=== PATIENT | male | born 1955 | race Caucasian/White ===

== ENCOUNTER 2021-07-10 12:16 | Emergency (ER) | payer MEDICARE, SELFPAY ==
[2021-07-10] VITALS (11 sets, daily range): BP systolic 124–196; BP diastolic 85–137; PULSE 83–128; RESP 17–30; TEMP 36.9; O2SAT 89–100
--- NOTE | ~2021-07-10 | XR_ITS ---
EXAMINATION: XR chest 2V 07/10/2021 15:28 INDICATION: Chest pain and dyspnea PROCEDURE: 2 view chest COMPARISON: No prior studies for comparison. FINDINGS: The lungs are clear. The cardiomediastinal silhouette is within normal limits. There are no pleural effusions. There is no pneumothorax suspected. IMPRESSION: 1: NO ACUTE CARDIOPULMONARY DISEASE. Reviewed, dictated and finalized at location A. ER INSTALLER
--- NOTE | 2021-07-10 13:20 | ED.SOB ---
HPI - SOB/Dyspnea General Chief Complaint: Shortness of Breath/Dyspnea Stated Complaint: SOB Time Seen by Provider: 07/10/21 13:20 Source: patient Mode of arrival: ambulatory Limitations: no limitations History of Present Illness HPI Narrative: 66-year-old man comes in today complaining of several weeks of increasing shortness of breath and chest pressure that has gotten worse the last 3 days. He has chest pressure that is 5/10 and worse with exertion. He has also developed a cough productive of brown sputum. He was seen at an outpatient clinic and given antibiotics for his symptoms. He complains of months of cough, wheezing and shortness of breath that worse when he lays down. He denies any fever, chills, nausea vomiting, diarrhea, sick exposures, abdominal pain, ankle swelling and prior similar symptoms. He has been using Primatene mist and Primatene tabs for his symptoms and they are having little effect. MD elicited complaint: shortness of breath and cough Onset (ago): week(s) Timing: constant and progressively worsening Severity: moderate Exacerbating factors: lying flat, exertion and humidity Relieving factors: rest Associated symptoms: chest pain (Only with cough), cough, wheezing and orthopnea Treatment prior to arrival: other (Primatine mist and tabs) Related Data Home oxygen amount: none Home Medications Medication Instructions Recorded Confirmed diazepam 5 mg PO DAILY 07/10/21 07/10/21 Allergies Allergy/AdvReac Type Severity Reaction Status Date / Time No Known Allergies Allergy Verified 07/10/21 13:08 Review of Systems Review of Systems: All systems reviewed & are unremarkable except as noted in HPI and below Constitutional: Constitutional: Denies chills, Denies fever(s) and Denies weakness Eyes: Eyes: Denies change in vision and Denies photophobia ENT: Denies nasal congestion and Denies sore throat Cardiovascular: Cardiovascular: Reports as per HPI, Denies chest pain and Denies radiating jaw, neck or arm pain Respiratory: Respiratory: Reports cough, Reports dyspnea and Reports wheezing Gastrointestinal: Gastrointestinal: Denies abdominal pain, Denies diarrhea, Denies nausea and Denies vomiting Genitourinary: Genitourinary: Denies hematuria, Denies dysuria and Denies urinary frequency Musculoskeletal: Musculoskeletal: Denies arthralgias and Denies joint swelling Integumentary/Breasts: Skin/Breast: Denies pruritus, Denies erythema and Denies rash Neurologic: Denies vertigo, Denies dizziness, Denies syncope, Denies headache(s), Denies focal weakness and Denies numbness Hematologic/Lymphatic: Hematologic/Lymphatic: Denies easy bleeding and Denies easy bruising Allergic/Immunologic: Allergic/Immunologic: Denies lip swelling, Denies throat swelling and Denies tongue swelling [facility] Social History Social History (Updated 07/10/21 @ 14:20 by Wayne Matthews MD) Smoking status: Former smoker Alcohol intake: current Alcohol use details: 3 drinks per day until recently Substance use: never Exam Const: General: alert and ill appearing (Mildly and) acutely Orientation/consciousness: patient oriented x3 Other: Mild acute distress. HENMT: Head: normal to inspection Ears: external ears normal, TM's normal bilaterally and EAC's normal General nose exam: Normal nares present Face and sinus: normal facial exam Mouth: Yes moist mucous membranes Throat: posterior oropharynx normal Eyes: Conjunctivae: conjunctivae normal Pupils: Equal, round and reactive pupils present EOM: EOMs intact bilaterally Resp: Effort & Inspection: normal respiratory effort Auscultation: no rales, no rhonchi and wheezes (Mildly prolonged expiratory phase.) expiratory wheezes and throughout Cardio: Rate: regular rate Rhythm: regular rhythm Heart sounds: no murmurs GI: GI Palp: Yes Soft to palpation and No Tenderness to palpation present (GI) Skin: General skin exam: normal color, no jaundice and no pallo
--- NOTE | 2021-07-10 13:29 | ECG_ITS ---
Measurements Intervals [place] Rate: 96 P: 61 HI: 137 QRS: 14 QRSD: 117 T: 34 QT: 375 QTc: 475 Interpretive Statements SINUS RHYTHM POSSIBLE LEFT ATRIAL ENLARGEMENT INCOMPLETE RIGHT BUNDLE BRANCH BLOCK BASELINE ARTIFACT- I, II, III, AVR, AVL, AVF, V1-V3 BORDERLINE ECG Electronically Signed On 07-10-2021 13:48:08 RN [place] by Abad Mancilla D.O.
[2021-07-10 14:01] LABS: Base Excess ABG -0.2 mmol/L (0-2); HCO3 ABG 22.5 mmol/L (23-29); Oxygen Content ABG 15.3 %vol (16.0-22.0); Oxyhemoglobin 90.6 % (94-100); PCO2 ABG 30.6 mmHg (35-45); PO2 ABG 61.4 mmHg (75-85); pH ABG 7.48 (7.35-7.45)
[2021-07-10 14:12] LABS: Hematocrit 34.7 % (37.0-46.0); Hemoglobin 11.7 g/dL (12.4-15.3); Mean Corpuscular HGB Conc 33.7 g/dL (32.0-36.0); Mean Corpuscular Hemoglobin 31.7 pg (27.0-31.0); Mean Platelet Volume 11.3 fl (8.7-11.0); Platelet Count Result 326 K/mm3 (150-420); Red Blood Count 3.69 M/mm3 (4.70-6.10); Red Cell Distribution Width 13.2 % (11.6-14.4); White Blood Count 13.8 K/mm3 (4.8-10.8)
[2021-07-10 14:16] LABS: Device ROOM AIR; Modified Allen's Test Pass; Site Drawn RIGHT RADIAL
[2021-07-10 14:23] LABS: D Dimer 0.43 mg/L (0.19-0.50); Partial Thromboplastin Time 25.1 SEC (23.90-30.70); Prothrombin Time 10.7 Seconds (9.50-12.10)
[2021-07-10 14:28] LABS: Alanine Aminotransferase 48 U/L (16-63); Albumin Level 3.5 g/dL (3.4-5.0); Alkaline Phosphatase 64 U/L (46-116); Anion Gap 11 mmol/L (8-16); Aspartate Amino Transferase 43 U/L (15-37); Bilirubin,Total 0.5 mg/dL (0.00-1.00); Blood Urea Nitrogen 18 mg/dL (7-18); Calcium 9.2 mg/dL (8.5-10.1); Carbon Dioxide 28 mmol/L (21-32); Chloride 105 mmol/L (98-108); Estimated CRCL calculation 46 ml/min; Estimated Glomerular Filt Rate 56; Glucose 115 mg/dL (70-99); NT Pro B Type Natriuretic Pept 2118 pg/mL (0-125); Osmolality Calculated 300 mOsm/kg (285-295); Potassium 3.6 mmol/L (3.5-5.1); Sodium 144 mmol/L (136-145); Total Protein 7.3 g/dL (6.4-8.2)
[2021-07-10 14:30] LABS: Troponin I 651.1 ng/L (0.00-60.4)
[2021-07-10 14:42] LABS: SARS-CoV-2 RNA PCR Negative (Negative)
[2021-07-10] MEDS: METOPROLOL TARTRATE 25 MG TABLET PO ×2 (14:46→22:29)
[2021-07-10] MEDS: ASPIRIN 81 MG CHEWABLE TABLET 324 MG PO (14:46)
[2021-07-10 14:54] LABS: Band Neutrophils Percent 0 % (0-6); Basophils Absolute Manual 0.13 K/mm3 (0-0.1); Basophils Percent Manual 1 % (0-1); Eosinophils Absolute Manual 3.17 K/mm3 (0.02-0.5); Eosinophils Percent Manual 23 % (1-6); Lymphocytes Absolute Manual 1.51 K/mm3 (1.1-4.5); Lymphocytes Percent Manual 11 % (18-44); Monocytes Absolute Manual 0.82 K/mm3 (0.1-0.90); Monocytes Percent Manual 6 % (3-9); Neutrophils Absolute Manual 8.14 K/mm3 (1.3-6.7); Neutrophils Percent Manual 59 % (46-73); Platelet Estimate Adequate (Adequate); Total Cells Counted 100
[2021-07-10] MEDS: ACETAMINOPHEN 500 MG TABLET 1000 MG PO (15:42)
[2021-07-10] MEDS: NITROGLYCERIN SL 0.4 MG TABLET SUBLINGUAL (15:43)
--- NOTE | 2021-07-10 15:44 | PC.NURSE ---
Dr. Whyte called at [phone] with no answer
--- NOTE | 2021-07-10 15:45 | PC.NURSE ---
Elizabeth Sauer called at [phone] and voicemail left at this time
[2021-07-10 15:58] LABS: Add Urine Microscopic? NO; Appearance Urine Clear (Clear); Bilirubin Urine Negative (Negative); Blood Urine Negative (Negative); Color Urine Light Yellow (Yellow); Glucose Urine UA Negative (Negative); Ketones Urine Negative (Negative); Leukocyte Esterase Ur Negative LEU/UL (Negative); Nitrate Urine Negative (Negative); Protein Urine Negative (Negative); Urobilinogen Urine 0.2 mg/dL (0.2-1.0); pH Urine 5.5 (5.0-8.0)
--- NOTE | 2021-07-10 16:31 | PC.NURSE ---
Patient sitting up on side of bed and resting comfortably at this time.
--- NOTE | 2021-07-10 18:17 | PC.NURSE ---
Patient assisted to bathroom by RN. denies any CP at this time.
[2021-07-10 18:32] LABS: Troponin I 855.1 ng/L (0.00-60.4)
[2021-07-10] MEDS: ENOXAPARIN 60 MG/0.6 ML SYRINGE SUB-Q (19:00)
[2021-07-10] MEDS: FUROSEMIDE INJ 40 MG/4 ML VIAL IV PUSH (19:40)
[2021-07-10 21:33] LABS: Troponin I 753.9 ng/L (0.00-60.4)
[2021-07-11] VITALS (16 sets, daily range): BP systolic 144–168; BP diastolic 48–97; PULSE 72–100; RESP 16–20; TEMP 36.6–36.9; O2SAT 94–98
--- NOTE | 2021-07-11 00:09 | PC.NURSE ---
Patient arrived from ER t0 room 206. Oriented to room and enviroment.
--- NOTE | 2021-07-11 00:28 | PC.NURSE ---
Call placed to [facility] in [place] for possible pt transfer. Pt stated he was trying to get back to [place] and has had Drs in this location in past and was a pt at [facility]. Call to transfer line made and told No Beds available.
--- NOTE | 2021-07-11 00:47 | PC.NURSE ---
Patient c/o SOB. SPO2 95% on room air. Placed on O2 at 2 liters nasal cannula for comfort.
--- NOTE | 2021-07-11 01:48 | PC.NURSE ---
Call placed back to [facility], report given on pt status and possible need for a cardiac cath and pts dx of NSTEMI. Pt at this time will be placed on their wait list as they have no ICU/cardiac beds available. Will call back when available. Info and updates given to 2nd floor nurse Zac Lau
--- NOTE | 2021-07-11 02:29 | PC.NURSE ---
[facility] called to inform us that they are at full bed capacity and that the pt is still on the waiting list.
--- NOTE | 2021-07-11 04:54 | PC.NURSE ---
[facility] called with update on wait list. No beds at this time.
[2021-07-11 05:34] LABS: Hematocrit 32.7 % (37.0-46.0); Mean Corpuscular HGB Conc 33.6 g/dL (32.0-36.0); Mean Corpuscular Hemoglobin 31.5 pg (27.0-31.0); Mean Corpuscular Volume 93.7 fL (78.0-102.0); Mean Platelet Volume 11.2 fl (8.7-11.0); Platelet Count Result 296 K/mm3 (150-420); Red Blood Count 3.49 M/mm3 (4.70-6.10); Red Cell Distribution Width 13.2 % (11.6-14.4); White Blood Count 13.6 K/mm3 (4.8-10.8)
[2021-07-11 05:55] LABS: Band Neutrophils Percent 0 % (0-6); Eosinophils Absolute Manual 1.63 K/mm3 (0.02-0.5); Eosinophils Percent Manual 12 % (1-6); Lymphocytes Absolute Manual 2.99 K/mm3 (1.1-4.5); Lymphocytes Percent Manual 22 % (18-44); Monocytes Absolute Manual 0.95 K/mm3 (0.1-0.90); Monocytes Percent Manual 7 % (3-9); Neutrophils Absolute Manual 8.02 K/mm3 (1.3-6.7); Neutrophils Percent Manual 59 % (46-73); Total Cells Counted 100
[2021-07-11 05:56] LABS: Platelet Estimate Adequate (Adequate)
[2021-07-11 06:03] LABS: Alanine Aminotransferase 50 U/L (16-63); Albumin Level 3.3 g/dL (3.4-5.0); Alkaline Phosphatase 58 U/L (46-116); Anion Gap 11 mmol/L (8-16); Aspartate Amino Transferase 42 U/L (15-37); Bilirubin,Total 0.5 mg/dL (0.00-1.00); Blood Urea Nitrogen 20 mg/dL (7-18); Carbon Dioxide 28 mmol/L (21-32); Chloride 104 mmol/L (98-108); Estimated CRCL calculation 39 ml/min; Estimated Glomerular Filt Rate 47; Glucose 94 mg/dL (70-99); Osmolality Calculated 298 mOsm/kg (285-295); Potassium 3.1 mmol/L (3.5-5.1); Sodium 143 mmol/L (136-145); Total Protein 6.8 g/dL (6.4-8.2)
[2021-07-11 06:05] LABS: Troponin I 485.4 ng/L (0.00-60.4)
--- NOTE | 2021-07-11 06:08 | PC.NURSE ---
Doctor notified of trop level.
[2021-07-11] MEDS: ENOXAPARIN 60 MG/0.6 ML SYRINGE SUB-Q ×2 (06:28→21:39)
[2021-07-11] MEDS: METOPROLOL TARTRATE 25 MG TABLET PO ×2 (09:21→21:38)
--- NOTE | 2021-07-11 10:16 | PC.NURSE ---
ate 100% of breakfast this am. lungs have crackes. cough up sm thick brown mucous. denies chest pain. c/o he does does get winded with exertion. up ad dorina in room
[2021-07-11] MEDS: ALBUTEROL SULFATE (*SP) INHALER 2 PUFF INHALATION ×3 (13:33→21:37)
[2021-07-11] MEDS: methylPREDNISolone SOD SUCC 125 MG VIAL IV PUSH ×2 (13:33→21:38)
--- NOTE | 2021-07-11 16:16 | PC.NURSE ---
up ad dorina in room. sr on tele with rates 80-90's. denies any cp. he claims since inhaler use to fix wheezes in lungs he feels better. denies any sob. [facility] claims no beds at this time.
--- NOTE | 2021-07-11 16:25 | PC.NURSE ---
1230 patient c/o to deny cp. still coughs up house mucous. ate 100% of lunch. up ad dorina in room to br. gait steady. tele is sr with rates 80-90;s.
--- NOTE | 2021-07-11 18:03 | PC.NURSE ---
[facility] called and informed that there is still no beds available there.
[2021-07-11 18:36] LABS: Troponin I 253.7 ng/L (0.00-60.4)
--- NOTE | 2021-07-11 20:00 | PC.NURSE ---
Patient is an ER hold, waiting for placement in a hospital with higher acuity care. Patient is on telemetry, and was typically showing atrial fibrillation. He stated that he has improved a great deal since having his treatment (Duonebs and methylprednisolone). Patient's GI, , HEENT, Integumentary, Neurological and Reproductive systems were within normal limits. Patient was diagnosed with a non-stemi in the ER. His troponin levels began at 651.1, slowly dropping down to 253. Patient also has COPD, and evidences bilateral wheezing on expiration. Patient is independent, and is able to use the urinal independently. Patient stated that he does not have any pain at this time.
[2021-07-12] VITALS (7 sets, daily range): BP systolic 146–164; BP diastolic 65–80; PULSE 73–88; RESP 18–22; TEMP 36.7–37.3; O2SAT 93–96
[2021-07-12] MEDS: methylPREDNISolone SOD SUCC 125 MG VIAL IV PUSH (06:42)
[2021-07-12] MEDS: ENOXAPARIN 60 MG/0.6 ML SYRINGE SUB-Q (06:42)
--- NOTE | 2021-07-12 08:05 | ECHO_ITS ---
Patient Info Name: Gabriel Varma Age: 66 years : 1955 Gender: Male Ht: 68 in Wt: 143 lbs BSA: 1.76 m2 HR: 86 bpm BP: 164 / 80 mmHg Technical Quality: Good Exam Date: 07/12/2021 8:56 AM Exam Location: [facility] Patient Status: Emergency Admit Date: 07/10/2021 Staff Ordering Physician: Remi Meza MD Relationship Specialist: Brittany Heredia Attending Provider: Wayne Matthews MD Referring Physician: Derrick ABARCA; Exam Type: CA echo doppler color flow Study Info Indications I21.4 - Non-ST elevation (NSTEMI) myocardial infarction Complete two-dimensional, color flow and Doppler transthoracic echocardiogram is performed. Strain analysis performed. Summary 1. Complete two-dimensional, color flow and Doppler transthoracic echocardiogram is performed. 2. Left ventricular chamber dimension is normal. 3. Left ventricular systolic function is normal, estimated at 60-65%. 4. The left ventricular diastolic function is grade I diastolic dysfunction. 5. E/e' 11 is mildly elevated. 6. Global longitudinal strain is abnormal at -16.2%. 7. There is mild tricuspid valve regurgitation. 8. No pulmonary hypertension, estimated pulmonary arterial systolic pressure is 33 mmHg. Left Ventricle E/e' 11 is mildly elevated. Global longitudinal strain is abnormal at -16.2%. Left ventricular chamber dimension is normal. Left ventricular systolic function is normal, estimated at 60-65%. The left ventricular diastolic function is grade I diastolic dysfunction. Right Ventricle Right ventricular systolic function is normal and with normal TAPSE 2.5 cm.. Right ventricular chamber dimension is normal. Left Atria Left atrial chamber dimension is normal. Right Atria Right atrial chamber dimension is normal. Aortic Valve The aortic valve is not well visualized. Cannot determine number of aortic valve leaflets. There is no aortic valve stenosis. There is no aortic valve regurgitation. Pulmonic Valve There is no pulmonic regurgitation. Mitral Valve There is no mitral valve stenosis. There is no mitral valve regurgitation. Tricuspid Valve There is mild tricuspid valve regurgitation. No pulmonary hypertension, estimated pulmonary arterial systolic pressure is 33 mmHg. Pericardium/Pleural There is no pericardial effusion. Inferior Vena Cava Normal inferior vena cava with >50% collapse upon inspiration consistent with normal right atrial pressure, 5 mmHg. Aorta The aortic root size at the sinus of Valsalva is normal. Left Ventricular Outflow Tract Name Value Normal LVOT 2D LVOT Diameter 2.0 cm LVOT Doppler LVOT Peak Velocity 96 cm/s LVOT Peak Gradient 4 mmHg LVOT Mean Gradient 2 mmHg LVOT VTI 19 cm LVOT VTI/AV VTI Ratio 0.9 LVOT Stroke Volume 61 ml Mitral Valve Name Value Normal
[2021-07-12 08:43] LABS: Basophils Absolute Auto 0.02 K/mm3 (0.00-0.10); Basophils Percent Auto 0.2 % (0.0-1.0); Hemoglobin 11.5 g/dL (12.4-15.3); Immature Granulocyte Absolute 0.05 K/mm3 (0.00-0.00); Immature Granulocyte Percent A 0.4 % (0.0-0.0); Lymphocytes Absolute Auto 0.79 K/mm3 (1.10-4.50); Lymphocytes Percent Auto 6.8 % (18.0-42.0); Mean Corpuscular HGB Conc 34.8 g/dL (32.0-36.0); Mean Corpuscular Hemoglobin 31.2 pg (27.0-31.0); Mean Corpuscular Volume 89.4 fL (78.0-102.0); Mean Platelet Volume 11.8 fl (8.7-11.0); Monocytes Percent Auto 4.3 % (2.0-11.0); Neutrophils Absolute Auto 10.3 K/mm3 (1.7-7.2); Neutrophils Percent Auto 88.3 % (50.0-70.0); Platelet Count Result 327 K/mm3 (150-420); Red Blood Count 3.69 M/mm3 (4.70-6.10); Red Cell Distribution Width 12.6 % (11.6-14.4); White Blood Count 11.7 K/mm3 (4.8-10.8)
[2021-07-12 09:04] LABS: Anion Gap 10 mmol/L (8-16); Blood Urea Nitrogen 29 mg/dL (7-18); Calcium 8.9 mg/dL (8.5-10.1); Carbon Dioxide 28 mmol/L (21-32); Chloride 102 mmol/L (98-108); Estimated CRCL calculation 40 ml/min; Estimated Glomerular Filt Rate 48; Glucose 127 mg/dL (70-99); Osmolality Calculated 297 mOsm/kg (285-295); Potassium 3.3 mmol/L (3.5-5.1); Sodium 140 mmol/L (136-145)
--- NOTE | 2021-07-12 09:05 | PC.NURSE ---
Spoke to [facility] Hide Stretcher at [facility] and they do not have any beds. She stated that in their capacity meeting for [facility] that [facility] in [place] might have a bed. Called and left a message for the warehouse team member. Ana Rosa, 2nd floor RN notified
[2021-07-12 09:07] LABS: Troponin I 116.8 ng/L (0.00-60.4)
--- NOTE | 2021-07-12 09:40 | PC.NURSE ---
Spoke to [facility] transfer line and intake information given for possible transfer. Waiting change control specialist back.
[2021-07-12] MEDS: ASPIRIN 81 MG CHEWABLE TABLET PO (10:08)
[2021-07-12] MEDS: ALBUTEROL SULFATE (*SP) INHALER 2 PUFF INHALATION (10:09)
[2021-07-12] MEDS: UMECLIDINIUM BROMIDE 62.5 MCG ELLIPTA 1 PUFF INHALATION (10:09)
[2021-07-12] MEDS: METOPROLOL TARTRATE 25 MG TABLET PO (10:09)
--- NOTE | 2021-07-12 10:42 | PC.NURSE ---
up ad dorina in room. gait steady. feed self breakfast. denies any sob or cp. lungs cta this am. sr on tele
--- NOTE | 2021-07-12 12:07 | PC.NURSE ---
[facility] with [facility] called and pt has been accepted by cardiology. Dr. Meza speaking with hospitalist at this time.
--- NOTE | 2021-07-12 12:21 | PC.NURSE ---
Jaz on 2nd floor notified that pt has been accepted at [facility]. Phone number to call report given to Jaz.
--- NOTE | 2021-07-12 13:38 | PC.NURSE ---
report called to pam reid, and ambulance called. pt cont to deny sob.
--- NOTE | 2021-07-12 14:02 | PC.NURSE ---
1355 ambulance here and report given and care turned over to them.
--- NOTE | 2021-07-12 14:29 | WPDPN ---
Progress Note: A&P Assessment and Plan (1) Renal insufficiency: Code(s): N28.9 - Disorder of kidney and ureter, unspecified Status: Acute Assessment and Plan: please continue to monitor urine output and serum electrolytes. (2) Chronic anemia: Code(s): D64.9 - Anemia, unspecified Status: Acute Assessment and Plan: H&H is noted to be . This appears to be secondary to chronic renal insufficiency. . Will continue to monitor H&H (3) Non-ST elevation AL (NSTEMI): Code(s): I21.4 - Non-ST elevation (NSTEMI) myocardial infarction Status: Acute Assessment and Plan: patient presented with shortness of breath without any chest pain. He had elevated troponins of 651, 855, 254 and a proBNP of 2 118. Patient had an echo which revealed an EF of 60-65% with diastolic dysfunction. The patient is noted to have elevated pulmonary pressures. Will transfer the patient to the card reader for cardiac catheterization And possible revascularization. Subjective Date/time seen: 07/12/21 14:29 Interval history: 66-year-old presented worsening shortness had shortness of 6 months got worse over 2 days. He was noted to an elevated troponin and proBNP. He was also noted to have renal insufficiency with a baseline BUN/creatinine of 18/1.27. EKG revealed right bundle branch block with left atrial enlargement without any acute ST changes. The patient denied chest pain. His shortness of breath has improved from the time of admission. Review of Systems Review of Systems: All systems reviewed & are unremarkable except as noted in HPI and below Constitutional: Constitutional: Reports as per HPI and Reports no additional constitutional complaints Eyes: Eyes: Reports as per HPI and Reports no additional eye complaints ENT: Reports system reviewed and no additional complaints, except as documented and Reports as per HPI Cardiovascular: Cardiovascular: Reports as per HPI and Reports no additional cardiovascular complaints Respiratory: Respiratory: Reports as per HPI and Reports dyspnea Gastrointestinal: Gastrointestinal: Reports as per HPI and Reports no additional gastrointestinal complaints Genitourinary: Genitourinary: Reports no additional male genitourinary complaints and Reports as per HPI Musculoskeletal: Musculoskeletal: Reports no additional musculoskeletal complaints and Reports as per HPI Integumentary/Breasts: Skin/Breast: Reports system reviewed and no additional complaints, except as docu and Reports as per HPI Neurologic: Reports system reviewed and no additional complaints, except as documented and Reports as per HPI Psychiatric: Psychiatric: Reports no additional psychiatric complaints and Reports as per HPI Exam Const: General: no acute distress Eyes: General: appearance normal, both eyes and all related structures Neck: Neck: no JVD Resp: Auscultation: clear to auscultation bilaterally Cardio: Rate: regular rate Rhythm: regular rhythm GI: GI Palp: Yes Soft to palpation Percussion: Yes normal to percussion : Male General Exam: Yes normal external exam Skin: General skin exam: normal color Neuro: General: gait normal Speech: normal speech Motor exam (neuro): 5/5 motor strength present throughout and Normal motor muscle tone present throughout Sensory Exam: normal sensation Extrem: General: normal to inspection and normal exam except as noted Left upper extremity: normal to inspection Right lower extremity: normal to inspection Left lower extremity: normal to inspection Psych: Mental Status: mental status grossly normal Objective Data Vital Signs Vital Signs: Vital Signs - 24 hr 07/11/21 15:47 07/11/21 16:15 07/11/21 20:00 Temperature 36.9 C 36.8 C Pulse Rate 88 100 87 Respiratory Rate 18 20 Blood Pressure 154/74 H 163/83 H Pulse Oximetry 95 94 07/11/21 21:38 07/12/21 00:00 07/12/21 04:00 Temperature 37.1 C 36.7 C Puls
== END 2021-07-12 13:55 | disposition short-term general hospital (02) ==
LOC: CHSED 19:01 → CHS2ND 21:34
PROVIDERS: Emergency Medicine; Internal Medicine Critical Care Medicine; Emergency Provider Emergency Medicine
DX: I21.4 Non-ST elevation (NSTEMI) myocardial infarction (principal); Z20.822 Contact with and (suspected) exposure to COVID-19; Z87.891 Personal history of nicotine dependence
CPT/HCPCS: 36415; 36600; 71046; 80048; 80053; 81003; 82805; 83735; 83880; 84484; 85025; 85380; 85610; 85730; 87040; 93005; 93306; 96372; 96374; 96375; 96376; 99285; A9270; C9803; J1650; J1940; J2930; U0003; U0005